=== PATIENT | female | born 1950 | race Two or more races ===

== ENCOUNTER 2017-05-23 19:49 | Emergency (ER) | payer MEDICARE, OTHER ==
[2017-05-23 19:57] VITALS: BP 127/80
--- NOTE | 2017-05-23 20:30 | XRAY Preliminary Report ---
Exam: XR CHEST 2 VIEW PA/LAT IMPRESSION: 1. Clear lungs. 2. Moderate-sized hiatal hernia. [facility] SITE ID: [id number]
--- NOTE | 2017-05-23 20:33 | XRAY Report ---
EXAM: CHEST RADIOGRAPHY EXAM DATE: 05/23/2017 08:09 PM. CLINICAL HISTORY: Cough. COMPARISON: None. TECHNIQUE: 2 views. FINDINGS: Lungs/Pleura: No consolidative process. Negative for pleural effusion and pneumothorax. Mediastinum: The heart is normal in size. There is [id number] tortuosity of the descending aort a. There is a air-fluid level consistent with a moderate-sized hiatal hernia. Other: None. IMPRESSION: 1. Clear lungs. 2. Moderate-sized hiatal hernia. [facility] Referring Provider Line: [phone] SITE ID: [id number]
[2017-05-23] MEDS ORDERED: DOXYCYCLINE 100 MG TABLET PO STA (20:34)
[2017-05-23] MEDS ORDERED: BENZONATATE 100 MG CAPSULE PO STA (20:34)
--- NOTE | 2017-05-23 20:37 | ED Physician Documentation ---
PD HPI URI - Stated complaint Stated Complaint: SOA/COUGH - Chief complaint Chief Complaint: Resp - History obtained from History obtained from: Patient - History of Present Illness Timing - onset: Other (66-year-old woman with history of asthma presents with 4 months of cough of productive sputum with low-grade fevers. She saw her doctor and was prescribed albuterol which has not really helped although she does request a refill. She has borderline diabetes oral steroids were not used I presume. She has no history of other heart or lung problems.) Review of Systems Constitutional: reports: Fever, Myalgias, Fatigue. denies: Chills Nose: denies: Rhinorrhea / runny nose, Congestion Cardiac: denies: Chest pain / pressure Respiratory: reports: Dyspnea, Cough PD PAST MEDICAL HISTORY - Present Medications Home Medications: Ambulatory Orders Medication Instructions Recorded Confirmed Albuterol Sulfate [Proventil Hfa 1 - 2 puffs IH Q4H PRN #1 05/23/17 Inhaler] hfa.aer.ad Benzonatate [Tessalon Perle] 100 mg PO QID PRN #20 capsule 05/23/17 Doxycycline Hyclate 100 mg PO BID #14 tablet 05/23/17 - Social History Does the pt smoke?: No Smoking Status: Never smoker PD ED PE NORMAL - Vitals Vital signs reviewed: Yes - General General: Alert and oriented X 3, No acute distress - HEENT HEENT: PERRL, EOMI - Neck Neck: Supple, no meningeal sign, No bony TTP - Cardiac Cardiac: RRR, No murmur - Respiratory Respiratory: Other (Mildly rhonchorous without focal breath sounds, good air movement.) - Abdomen Abdomen: Soft, Non tender - Neuro Neuro: Alert and oriented X 3, Normal speech - Psych Psych: Normal mood, Normal affect Results - Vitals Vitals: Vital Signs - 24 hr 05/23/17 19:54 Temperature 36.1 C L Heart Rate 82 Respiratory 20 Rate Blood Pressure 127/80 O2 Saturation 96 Oxygen O2 Source Room air - Rads (name of study) 2 view chest Radiology: EMP read contemporaneously (Hiatal hernia with clear lungs) PD MEDICAL DECISION MAKING - ED course ED course: 66-year-old woman with bronchitis, given the long time course and underlying diabetes it is reasonable to trial some antibiotics at this juncture. Steroids held given the diabetes. Departure - Departure Disposition: Home, Self Care Clinical Impression: Bronchitis Condition: Good Record reviewed to determine appropriate education?: Yes Instructions: Bronchitis Acute Dc Prescriptions: Albuterol Sulfate [Proventil Hfa Inhaler] 1 - 2 puffs IH Q4H PRN #1 hfa.aer.ad PRN Reason: Cough Benzonatate [Tessalon Perle] 100 mg PO QID PRN #20 capsule PRN Reason: Cough Doxycycline Hyclate 100 mg PO BID #14 tablet Comments: Call your doctor to arrange a follow-up appointment, make the next available appointment. In the interim, return anytime if worse or if new symptoms develop.
[2017-05-23] MEDS ORDERED: BENZONATATE 100 MG CAPSULE PO ONE (20:42)
[2017-05-23] MEDS ORDERED: DOXYCYCLINE 100 MG TABLET PO ONE (20:43)
== END 2017-05-23 20:42 | disposition home or self-care (01) ==
LOC: ED 19:49
DX: J40 Bronchitis, not specified as acute or chronic (principal); E11.9 Type 2 diabetes mellitus without complications
CPT/HCPCS: 71020; 99283; A9270

== ENCOUNTER 2019-03-14 17:36 | Emergency (ER) | payer MEDICARE, OTHER ==
--- NOTE | 2019-03-14 19:29 | ED Physician Documentation ---
History of Present Illness - Stated complaint Stated Complaint: SOA/COUGH - Chief complaint Chief Complaint: Resp - Additonal information Additional information: This is a 68-year-old female with a history of hypertension, diabetes, and asth ma who presents with 1 month of cough. She states that she caught a cold from a young child who is staying in her home, and she has had a persistent cough since then. The cough is sometimes nonproductive, sometimes productive of some clear to white sputum. No hemoptysis. No leg swelling. No history of heart failure. She states that she in the evenings will get some wheezing, and she will take her albuterol inhaler and this will help. She is unable to pinpoint any particular exposures or allergens that will cause her to have coughing. When she has these episodes of wheezing she has some slight shortness of breath, but at this time she feels that her breathing is normal. No chest pain. She does get nasal congestion at times. Review of Systems Constitutional: denies: Fever Cardiac: denies: Chest pain / pressure Respiratory: reports: Cough GI: denies: Abdominal Pain PD PAST MEDICAL HISTORY - Past Medical History Past Medical History: Yes Cardiovascular: Hypertension Respiratory: Asthma, Other Neuro: None Endocrine/Autoimmune: Type 2 diabetes GI: GERD, Hiatal hernia [employer]: None : None HEENT: None Psych: None Musculoskeletal: None Derm: None Other Past Medical History: bronchitis - Past Surgical History Past Surgical History: Yes General: Cholecystectomy Ortho: Rotator cuff repair - Present Medications Home Medications: Ambulatory Orders Medication Instructions Recorded Confirmed Benzonatate [Tessalon Perle] 100 - 200 mg PO TID PRN #30 capsule 03/14/19 RX: Cetirizine [ZyrTEC] 10 mg PO DAILY PRN #15 tablet 03/14/19 RX: Glipizide 5 mg PO QDBREAKFAST 03/14/19 03/14/19 RX: Lisinopril 10 mg PO QDBREAKFAST 03/14/19 03/14/19 RX: Multivitamin [Daily Multiple 1 tab PO BID 03/14/19 03/14/19 Vitamin] RX: Omeprazole 20 mg PO QDAC 03/14/19 03/14/19 RX: metFORMIN [Glucophage] 500 mg PO QDBREAKFAST 03/14/19 03/14/19 - Allergies Allergies/Adverse Reactions: Allergies Allergy/AdvReac Type Severity Reaction Status Date / Time acetaminophen Allergy Unknown Verified 05/23/17 20:36 [From Tylenol-Codeine #3] codeine Allergy Unknown Verified 05/23/17 20:36 [From Tylenol-Codeine #3] hydrocodone Allergy Unknown Verified 05/23/17 20:36 - Social History Does the pt smoke?: No Smoking Status: Never smoker Does the pt drink ETOH?: No Does the pt have substance abuse?: No - Immunizations Immunizations are current?: Yes - POLST Patient has POLST: No PD ED PE NORMAL - Vitals Vital signs reviewed: Yes - General General: Alert and oriented X 3, No acute distress - HEENT HEENT: Atraumatic - Cardiac Cardiac: RRR, No murmur - Respiratory Respiratory: No respiratory distress, Clear bilaterally - Abdomen Abdomen: Non distended - Derm Derm: Warm and dry - Extremities Extremities: No deformity - Neuro Neuro: Alert and oriented X 3 - Psych Psych: Normal mood, Normal affect Results - Vitals Vitals: Vital Signs - 24 hr 03/14/19 03/14/19 17:42 20:11 Temperature 36.8 C 36.8 C Heart Rate 68 62 Respiratory 14 16 Rate Blood Pressure 120/61 122/80 O2 Saturation 98 97 Oxygen O2 Source Room air PD MEDICAL DECISION MAKING - ED course Complexity details: considered differential (Pneumonia, bronchitis, allergies, asthma, heart failure, lung mass) ED course: Pt is well appearing with unremarkable vital signs. Her exam is unremarkable. XR shows no acute abnormality, and she clinically does not have signs of pneumonia. No chest pain, leg swelling, or persistent dyspnea to suggest cardiac cause. No wheeze at this time. This may be a post-viral cough, or there may be a degree of cough-variant asthma. She has some mild allergic symptoms, we will try cetirizine and tessalon perles and she will follow up with her PCP. I discussed return precuations and patient was discharged in the care of her daughter. Departure - Departure Disposition: 01 Home, Self Care Clinical Impression: Cough Condition: Good Follow-Up: Your,PCP [Other] (For follow up on cough) Prescriptions: Benzonatate [Tessalon Perle] 100 - 200 mg PO TID PRN #30 capsule PRN Reason: Cough RX: Cetirizine [ZyrTEC] 10 mg PO DAILY PRN #15 tablet PRN Reason: Allergy Symptoms Comments: You were seen today for cough, your chest x-ray does not show signs of pneumonia or other issues. Please try the cough and allergy medications as prescribed, and follow up with your PCP. If you have Chest pain, shortness of breath, or worsening symptoms please return to the emergency department Discharge Date/Time: 03/14/19 21:01
[2019-03-14 20:12] VITALS: BP 122/80
--- NOTE | 2019-03-14 20:31 | XRAY Report ---
Reason: cough for 1 month Procedure Date: 03/14/2019 Accession Number: [id number] / [id number] Procedure: XR - Chest 2 View X-Ray CPT Code: 87091 FULL RESULT: EXAM: CHEST RADIOGRAPHY EXAM DATE: 03/14/2019 07:57 PM. CLINICAL HISTORY: Cough for 1 month. COMPARISON: CHEST 2 VIEW PA/LAT 05/23/2017 8:05 PM. TECHNIQUE: 2 views. FINDINGS: Lungs/Pleura: No focal opacities evident. No peribronchial cuffing or interstitial abnormality. No pleural effusion. No pneumothorax. Normal volumes. Mediastinum: Heart size normal. Large hiatal hernia on the left, as before. Other: Minimal right convex thoracic spine curvature. Mild diffuse etiopathic skeletal hyperostosis in the mid thoracic spine. Cholecystectomy clips. IMPRESSION: 1. Lungs are clear. 2. Large hiatal hernia, as before. [facility]
== END 2019-03-14 21:01 | disposition home or self-care (01) ==
LOC: ED 17:36
DX: R05 Cough (principal); I10 Essential (primary) hypertension; E11.9 Type 2 diabetes mellitus without complications; Z79.84 Long term (current) use of oral hypoglycemic drugs
CPT/HCPCS: 71046; 99283; 99284